=== PATIENT | female | born 1960 | race Caucasian/White ===

== ENCOUNTER 2020-08-29 12:16 | Outpatient (REF) | payer OTHER, SELFPAY | END 2020-08-29 12:17 | disposition home or self-care (01) | LOC: HO.LNP 12:16 | PROVIDERS: Visit Provider Nurse Practitioner Family | DX: Z20.822 Contact with and (suspected) exposure to COVID-19 (principal) | CPT/HCPCS: U0003; U0005 ==

== ENCOUNTER 2020-09-01 09:25 | Outpatient (REF) | payer OTHER, SELFPAY | END 2020-09-01 09:26 | disposition home or self-care (01) | LOC: HO.LAB 09:25 | PROVIDERS: Visit Provider Nurse Practitioner Family | DX: Z13.89 Encounter for screening for other disorder (principal) ==